=== PATIENT | male | born 1990 | race Caucasian/White ===

== ENCOUNTER 2018-06-10 12:08 | Emergency (ER) | payer OTHER ==
[~2018-06-10] VITALS: Ht 172.7 cm; Wt 84.4 kg
--- NOTE | 2018-06-10 12:30 | NUR ---
PT A/OX4, PRESENTS TO THE ER C/O A DOG BITE TO THE R WRIST. 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 PRESENTS W/ 2 SUPERFICIAL PUNCTURE WOUNDS TO THE R WRIST. PT REPORTS MILD PAIN TO THE R WRIST. PT DENIES C/P, SOB, N/V/D, DIZZINESS, HEADACHE.
--- NOTE | 2018-06-10 12:33 | NUR ---
NO BLEEDING NOTED AT THE BITE WOUND.
[2018-06-10] MEDS ORDERED: NEOMY/BACITRA/POLYMYXIN B OINT UD PACKET TP ONE ×2 (12:36→12:45)
--- NOTE | 2018-06-10 12:44 | NUR ---
Patient discharged to home in stable conditon. Written and verbal after care instructions given. Patient verbalizes understanding of instructions. PT D/C W/ PRESCRIPTION. ALL BELONGINGS W/ PT. PT SELF-AMBULATED W/O DIFFICULTY.
--- NOTE | 2018-06-10 12:44 | NUR ---
WOUND IRRIGATED W/ NS AND DRESSED W/ GAUZE AND CURLEX.
[2018-06-10 12:46] VITALS: BP 120/66
== END 2018-06-10 12:47 | disposition home or self-care (01) ==
LOC: ER 12:08
DX: S61.551A Open bite of right wrist, initial encounter (principal); W54.0XXA Bitten by dog, initial encounter; Y93.89 Activity, other specified; Y92.89 Other specified places as the place of occurrence of the external cause; Y99.8 Other external cause status
CPT/HCPCS: A4217; A4663